=== PATIENT | male | born 1965 | race Caucasian/White ===

== ENCOUNTER 2021-09-25 10:42 | Emergency (ER) | payer OTHER ==
[2021-09-25 10:52] VITALS: BP 111/71; PULSE 68; RESP 18; TEMP 97
--- NOTE | 2021-09-25 11:31 | ED ---
General Adult HPI - General Chief complaint: Extremity Problem,Nontraumatic Stated complaint: hands/feet swelling Time Seen by Provider: 09/25/21 10:56 Source: patient Mode of arrival: ambulatory Limitations: no limitations - History of Present Illness Initial comments: This 56-year-old male presents emergency Department with swelling and pain of bilateral hands and feet 3 weeks. Patient states about 2 months ago he experienced similar symptoms that resolved on their own after 4-5 days. Patient states that 3 weeks ago his symptoms came back and he has been unable to get into his primary care doctor until October 12. Patient states the swelling and pain in his hands and feet are worse in the morning and slowly get better throughout the day. Patient states the pain is in his knuckles and joints in his hands and the knuckles of his feet when he wakes up. Patient states he has been taking Motrin which seems to relieve the pain and swelling. Patient states that the swelling seems to come and go and sometimes is worse in his hands and other times is worse. Patient denies any swelling anywhere else in his body. He denies any chest pain, shortness breath abdominal pain, nausea, vomiting, change in bowel or bladder, change in appetite, lightheadedness and dizziness, change in vision, weakness. - Related Data Home Medications Medication Instructions Recorded Confirmed Ibuprofen [Motrin] 400 mg PO BID 09/25/21 09/25/21 Previous Rx's Medication Instructions Recorded Ketorolac [Toradol] 10 mg PO Q8HR #9 tab 09/25/21 Allergies Allergy/AdvReac Type Severity Reaction Status Date / Time No Known Allergies Allergy Verified 09/25/21 11:35 Review of Systems ROS Statement: Those systems with pertinent positive or pertinent negative responses have been documented in the HPI. ROS Other: All systems not noted in ROS Statement are negative. Past Medical History Past Medical History: No Reported History History of Any Multi-Drug Resistant Organisms: None Reported Past Surgical History: Orthopedic Surgery Additional Past Surgical History / Comment(s): cervial surgery 2016 Past Psychological History: No Psychological Hx Reported Smoking Status: Current every day smoker Past Alcohol Use History: None Reported Past Drug Use History: None Reported General Exam Limitations: no limitations General appearance: alert, in no apparent distress Head exam: Present: atraumatic, normocephalic, normal inspection Eye exam: Present: normal appearance, PERRL, EOMI. Absent: scleral icterus, conjunctival injection, periorbital swelling Pupils: Present: normal accommodation ENT exam: Present: normal exam, mucous membranes moist Neck exam: Present: normal inspection. Absent: tenderness, meningismus, lymphadenopathy Respiratory exam: Present: normal lung sounds bilaterally. Absent: respiratory distress, wheezes, rales, rhonchi, stridor Cardiovascular Exam: Present: regular rate, normal rhythm, normal heart sounds. Absent: systolic murmur, diastolic murmur, rubs, gallop, clicks GI/Abdominal exam: Present: soft, normal bowel sounds. Absent: distended, tenderness, guarding, rebound, rigid Extremities exam: Present: full ROM, normal capillary refill, joint swelling (No swelling appreciated of either right or left hand. No pain to palpation of either hand or feet. No visible swelling of either lower extremity or feet. Sensation fully intact. Radial and ulnar pulses intact along with DP pulses bilateral lower extremities. No erythema, warmth or sign of infect). Absent: tenderness, pedal edema, calf tenderness Back exam: Present: normal inspection, full ROM. Absent: CVA tenderness (R), CVA tenderness (L), paraspinal tenderness, vertebral tenderness Neurological exam: Present: alert, oriented X3, CN II-XII intact Psychiatric exam: Present: normal affect, normal mood Skin exam: Present: warm, dry, intact, normal color. Absent: rash Course Vital Signs 09/25/21 10:47 Temperature 97 F L Pulse Rate 68 Respiratory 18 Rate Blood Pressure 111/71 O2 Sat by Pulse 98 Oximetry Medical Decision Making - Medical Decision Making This 56-year-old male presents emergency Department with the complaint of bilateral hand and feet swelling/joint pain 3 weeks. On my physical exam there is no swelling appreciated of either hand or either foot or extremities. Patient given Toradol IM here. ESR 19. C-reactive protein, BNP, TSH unre markable. Rheumatoid factor pending. All other labs unremarkable. 3 days of Toradol given to patient. Patient was instructed not to take Motrin when taking Toradol. Patient instructed to follow-up with his primary care provider in next 24-48 hours. Rheumatology consult was given to patient and patient was instructed to follow-up with them this week. Strict return precautions were discussed. Patient sent home in stable condition. Patient verbally agreed to plan. Case discussed in detail with my attending, Dr. Aviles. - Lab Data Result diagrams: 09/25/21 11:39 09/25/21 11:39 Lab Results 09/25/21 09/25/21 09/25/21 Range/Units 11:39 11:39 11:39 WBC 8.4 (3.8-10.6) k/uL RBC 4.80 (4.30-5.90) m/uL Hgb 14.1 (13.0-17.5) gm/dL Hct 43.3 (39.0-53.0) % MCV 90.2 (80.0-100.0) fL MCH 29.3 (25.0-35.0) pg MCHC 32.5 (31.0-37.0) g/dL RDW 13.5 (11.5-15.5) % Plt Count 234 (150-450) k/uL MPV 8.2 Neutrophils % 60 % Lymphocytes % 33 % Monocytes % 4 % Eosinophils % 2 % Basophils % 0 % Neutrophils # 5.0 (1.3-7.7) k/uL Lymphocytes # 2.7 (1.0-4.8) k/uL Monocytes # 0.3 (0-1.0) k/uL Eosinophils # 0.1 (0-0.7) k/uL Basophils # 0.0 (0-0.2) k/uL ESR 19 H (0-15) mm/hr Sodium 136 L (137-145) mmol/L Potassium 4.5 (3.5-5.1) mmol/L Chloride 103 (98-107) mmol/L Carbon Dioxide 27 (22-30) mmol/L Anion Gap 6 mmol/L BUN 13 (9-20) mg/dL Creatinine 0.82 (0.66-1.25) mg/dL Est GFR (CKD-EPI)AfAm >90 (>60 ml/min/1.73 sqM) Est GFR (CKD-EPI)NonAf >90 (>60 ml/min/1.73 sqM) Glucose 95 (74-99) mg/dL Calcium 8.8 (8.4-10.2) mg/dL Total Bilirubin 0.5 (0.2-1.3) mg/dL AST 17 (17-59) U/L ALT 9 (4-49) U/L Alkaline Phosphatase 70 (38-126) U/L C-Reactive Protein 0.6 (<1.0) mg/dL NT-Pro-B Natriuret Pep 90 pg/mL Total Protein 7.5 (6.3-8.2) g/dL Albumin 3.8 (3.5-5.0) g/dL TSH 2.540 (0.465-4.680) mIU/L Disposition Clinical Impression: Arthralgia Disposition: HOME SELF-CARE Condition: Stable Instructions (If sedation given, give patient instructions): Arthralgia (ED) Additional Instructions: Please follow-up with rheumatology and your primary care provider in next 24-48 hours. Return to the emergency department with any new, worsening or concerning symptoms. Take Toradol as directed. Do not take Motrin while taking Toradol. Prescriptions: Ketorolac [Toradol] 10 mg PO Q8HR #9 tab Is patient prescribed a controlled substance at d/c from ED?: No Referrals: Nonstaff,Physician [Primary Care Provider] - 1-2 days Gillian Vieira MD [STAFF PHYSICIAN] - 1-2 days Fish Rascon [STAFF PHYSICIAN] - 1-2 days Time of Disposition: 13:01
[2021-09-25 11:52] LABS: Basophils % (A) 0 %; Eosinophils # (A) 0.1 k/uL (0-0.7); Eosinophils % (A) 2 %; HCT 43.3 % (39.0-53.0); HGB 14.1 gm/dL (13.0-17.5); Lymphocytes # (A) 2.7 k/uL (1.0-4.8); Lymphocytes % (A) 33 %; MCH 29.3 pg (25.0-35.0); MCHC 32.5 g/dL (31.0-37.0); MCV 90.2 fL (80.0-100.0); Mean Platelet Volume 8.2; Monocytes # (A) 0.3 k/uL (0-1.0); Monocytes % (A) 4 %; Neutrophils % (A) 60 %; Platelet Count 234 k/uL (150-450); RDW 13.5 % (11.5-15.5); WBC 8.4 k/uL (3.8-10.6)
[2021-09-25 12:11] LABS: ALT 9 U/L (4-49); AST 17 U/L (17-59); African American GFR (CKD) >90 (>60 ml/min/1.73 sqM); Albumin 3.8 g/dL (3.5-5.0); Alkaline Phosphatase 70 U/L (38-126); Anion Gap 6 mmol/L; Blood Urea Nitrogen 13 mg/dL (9-20); C Reactive Protein 0.6 mg/dL (<1.0); Calcium 8.8 mg/dL (8.4-10.2); Carbon Dioxide 27 mmol/L (22-30); Chloride 103 mmol/L (98-107); Glucose 95 mg/dL (74-99); Non-African American GFR(CKD) >90 (>60 ml/min/1.73 sqM); Potassium 4.5 mmol/L (3.5-5.1); Sodium 136 mmol/L (137-145); Total Bilirubin 0.5 mg/dL (0.2-1.3); Total Protein 7.5 g/dL (6.3-8.2)
[2021-09-25 13:09] LABS: Erythrocyte Sedimentation Rate 19 mm/hr (0-15)
[2021-09-25] MEDS ORDERED: KETOROLAC 15 MG/ML 1 ML VIAL IM STA (13:16)
== END 2021-09-25 13:26 | disposition home or self-care (01) ==
LOC: EDBD → EC 10:42
DX: M25.542 Pain in joints of left hand (principal); M25.541 Pain in joints of right hand; M25.572 Pain in left ankle and joints of left foot; M25.571 Pain in right ankle and joints of right foot; F17.200 Nicotine dependence, unspecified, uncomplicated
CPT/HCPCS: 36415; 83880; 80053; 85652; 84443; 85025; 86140; 86431; 86038; 99283; 96372; J1885

== ENCOUNTER 2022-12-02 11:33 | Emergency (ER) | payer OTHER ==
[2022-12-02 11:38] VITALS: RESP 18
[2022-12-02] MEDS ORDERED: KETOROLAC 15 MG/ML 1 ML VIAL IVP STA (12:16)
[2022-12-02] MEDS ORDERED: SODIUM CHLORIDE 0.9% 1,000 ML IV ONE (12:16)
[2022-12-02 13:11] LABS: Basophils % (A) 0 %; Eosinophils # (A) 0.2 k/uL (0-0.7); Eosinophils % (A) 2 %; HCT 42.2 % (39.0-53.0); HGB 13.8 gm/dL (13.0-17.5); Lymphocytes # (A) 2.1 k/uL (1.0-4.8); Lymphocytes % (A) 25 %; MCH 29.6 pg (25.0-35.0); MCHC 32.8 g/dL (31.0-37.0); MCV 90.2 fL (80.0-100.0); Mean Platelet Volume 9.3; Monocytes # (A) 0.6 k/uL (0-1.0); Monocytes % (A) 7 %; Neutrophils # (A) 5.4 k/uL (1.3-7.7); Neutrophils % (A) 63 %; Platelet Count 207 k/uL (150-450); RBC 4.67 m/uL (4.30-5.90); RDW 12.9 % (11.5-15.5); WBC 8.5 k/uL (3.8-10.6)
[2022-12-02 13:20] LABS: ALT 16 U/L (4-49); AST 20 U/L (17-59); African American GFR (CKD) >90 (>60 ml/min/1.73 sqM); Albumin 3.5 g/dL (3.5-5.0); Alkaline Phosphatase 79 U/L (38-126); Anion Gap 4 mmol/L; Blood Urea Nitrogen 15 mg/dL (9-20); Calcium 8.5 mg/dL (8.4-10.2); Carbon Dioxide 27 mmol/L (22-30); Chloride 104 mmol/L (98-107); Glucose 86 mg/dL (74-99); Non-African American GFR(CKD) >90 (>60 ml/min/1.73 sqM); Potassium 4.4 mmol/L (3.5-5.1); Sodium 135 mmol/L (137-145); Total Bilirubin 0.4 mg/dL (0.2-1.3); Total Protein 6.7 g/dL (6.3-8.2)
[2022-12-02] MEDS ORDERED: MORPHINE SULFATE 2 MG/ML SYRINGE IVP ONE (14:18)
--- NOTE | 2022-12-02 16:00 | CT ---
EXAMINATION TYPE: CT facial bones w con DATE OF EXAM: 12/02/2022 COMPARISON: None. HISTORY: left sided tooth pain, abscess? CT DLP: 554.7 mGycm Automated exposure control for dose reduction was used. CONTRAST: CT scan of the facial bones is performed with IV Contrast, patient injected with 100 mL of Isovue 300 . FINDINGS: Focal moderate ill-defined fluid and fat stranding over the mandible greatest left of midli ne. There is lucency consistent with cavity posterior left first molar to sagittal image 60. There is destruction of the majority of the second left premolar tooth and lucency consistent with cavity in the first left premolar tooth at several levels including coronal image 22. There is absent right sec ond premolar tooth with lucency axial image 67. There are absent additional molar teeth bilaterally. There is heterogeneous thin-walled rim-enhancing fluid collection surrounding the left mandible measu ring 1.7 x 0.8 cm axial image 18. Craniocaudal dimension roughly 2.0 cm sagittal image 60. Lack of molar teeth in the maxilla also seen bilaterally. The visualized paranasal sinuses are clear. The globes are intact bilaterally. Intraconal fat is preserved. [id number] peripheral calcifie d plaque left proximal internal carotid artery without significant stenosis. Visualized airway is pat ent. Visualized brain parenchyma is unremarkable. No bony destruction is evident. IMPRESSION: Focal inflammatory exchange underwriting consultant the mandible greatest left of midline with small 2.0 cm ad jacent rim-enhancing fluid collection or abscess noted. Finding likely on basis of underlying dental cavities
[2022-12-02] MEDS ORDERED: ACET/COD 300 MG/30 MG STARTER PACK 6 TAB BTL PO STA (16:07)
--- NOTE | 2022-12-02 16:07 | ED ---
ENT HPI - General Chief complaint: Dental/Oral Stated complaint: Face Infection Time Seen by Provider: 12/02/22 11:40 Source: patient, RN notes reviewed Mode of arrival: ambulatory Limitations: no limitations - History of Present Illness Initial comments: 57-year-old male with no significant past medical history presents to the emergency department with a chief complaint of dental pain. Patient reports worsening dental pain that started this morning. He denies any trauma or injury. He reports that he is unable to see a dentist for 2 and half weeks. He is complaining of worsening pain and swelling to his left lower jaw. he saw a dentist approximately 2 months ago. He does report tobacco product use. - Related Data Home Medications Medication Instructions Recorded Confirmed Etanercept [Enbrel Sureclick] 50 mg SQ LONG 12/02/22 12/02/22 clindamycin HCL [Cleocin] 300 mg PO Q6HR 12/02/22 12/02/22 traMADol HCL 50 mg PO Q6H 12/02/22 12/02/22 Previous Rx's Medication Instructions Recorded Amoxic-Pot Clav 875-125Mg 1 tab PO Q12HR #20 tab 12/02/22 [Augmentin 875-125] Allergies Allergy/AdvReac Type Severity Reaction Status Date / Time No Known Allergies Allergy Verified 12/02/22 12:21 Review of Systems ROS Statement: Those systems with pertinent positive or pertinent negative responses have been documented in the HPI. ROS Other: All systems not noted in ROS Statement are negative. Past Medical History Past Medical History: Rheumatoid Arthritis (RA) History of Any Multi-Drug Resistant Organisms: None Reported Past Surgical History: Orthopedic Surgery Additional Past Surgical History / Comment(s): cervial surgery 2016 Past Psychological History: No Psychological Hx Reported Smoking Status: Current every day smoker Past Alcohol Use History: None Reported Past Drug Use History: None Reported General Exam - General Exam Comments Initial Comments: General: Alert, in no acute distress Head: atraumatic normocephalic. Eyes PERRL, EOMI intact, mucous membranes moist Oral: Patient has poor dentition with multiple dental caries and missing teeth. There is swelling to the lower jaw without evidence of dental abscess. No active drainage. Range of motion. It is tender to palpation. No crepitus. Airway remained patent. Patient is not drooling. Respiratory: Lungs clear to auscultation bilaterally Cardiovascular: Rate regular rate and rhythm Abdominal: Soft without guarding or rebound Extremities: Normal inspection with full range of motion and normal capillary refill Neuroogic: alert and oriented 3, CN II-XII intact, able to ambulate with steady gait Skin: warm dry and intact with normal color Limitations: no limitations Course Vital Signs 12/02/22 12/02/22 11:35 16:29 Temperature 98.8 F 97.6 F Pulse Rate 81 77 Respiratory 18 18 Rate Blood Pressure 120/74 147/75 O2 Sat by Pulse 100 97 Oximetry Medical Decision Making - Medical Decision Making Was pt. sent in by a medical professional or institution (, [facility], [facility], urgent care, hospital, or [place] health care facility...) When possible be specific @ -[No] Did you speak to anyone other than the patient for history (EMS, parent, family, police, friend...)? What history was obtained from this source @ -[No] Did you review nursing and triage notes (agree or disagree)? Why? @ -[I reviewed and agree with nursing and triage notes] Were old charts reviewed (outside hosp., previous admission, EMS record, old EKG, old radiological studies, urgent care reports/EKG's, [place] health care facility records)? Report findings @ -[No old charts were reviewed] Differential Diagnosis (chest pain, altered mental status, abdominal pain women, abdominal pain men, vaginal bleeding, weakness, fever, dyspnea, syncope, headache, dizziness, GI bleed, back pain, seizure, CVA, palpatations, mental health, musculoskeletal)? @ -[not applicable] EKG interpreted by me (3pts min.). @ -[As above] X-rays interpreted by me (1pt min.). @ -[None done] CT interpreted by me (1pt min.). @ -See below U/S interpreted by me (1pt. min.). @ -[None done] What testing was considered but not performed or refused? (CT, X-rays, U/S, labs)? Why? @ -[None] What meds were considered but not given or refused? Why? @ -[None] Did you discuss the management of the patient with other professionals (professionals i.e. , [facility], [facility], lab, RT, psych nurse, psychotherapist social worker, business and financial counsel, teacher, licensed loan officer, rehabilitation case coordinator)? Give summary @ -[No] Was smoking cessation discussed for >3mins.? @ -[No] Was critical care preformed (if so, how long)? @ -[No] Were there social determinants of health that impacted care today? How? (Homelessness, low income, unemployed, alcoholism, drug addiction, transportation, low edu. Level, literacy, decrease access to med. care, assisted, rehab)? @ -[No] Was there de-escalation of care discussed even if they declined (Discuss DNR or withdrawal of care, Hospice)? DNR status @ -[No] What co-morbidities impacted this encounter? (DM, HTN, Smoking, COPD, CAD, Cancer, CVA, ARF, Chemo, Hep., AIDS, mental health diagnosis, sleep apnea, mo rbid obesity)? @ -[None] Was patient admitted / discharged? Hospital course, mention meds given and route, prescriptions, significant lab abnormalities, going to OR and other pertinent info. @ -Discharge. This is a 57-year-old male who presents to the emergency department with dental pain. Patient had a thorough history and phys ical exam performed on the ED. Physical exam reveals some swelling to the left lower aspect of the patient. Patient has poor dentition. There is no evidence of drainable dental abscess. Patient had lab work and imaging performed which revealed: CT facial bones reveals focal inflammatory pipe changer the mandible previous left of the midline was smoking 2.0 cm adjacent ring enhancing fluid collection or abscess Should had lab work performed which was essentially unremarkable. I discussed the results in detail with the patient verbalized understanding and all questions were addressed. I discussed at length. He was given a prescription for Augmentin however he was recently on Augmentin 2 days ago and reports he was switched from Augmentin to clindamycin. He was given Toradol and morphine with mild symptomatic relief. Patient was advised to continue his clindamycin as prescribed. Patient discharged in stable condition. Case discussed with ALENA Mendez who agrees with plan of care. Undiagnosed new problem with uncertain prognosis? @ -[No] Drug Therapy requiring intensive monitoring for toxicity (Heparin, Nitro, Insulin, Cardizem)? @ -[No] Were any procedures done? @ -[No] Diagnosis/symptom? @ -Dental pain - Poor dentition Acute, or Chronic, or Acute on Chronic? @ -Acute Uncomplicated (without systemic symptoms) or Complicated (systemic symptoms)? @ -Uncomplicated Side effects of treatment? @ -[No] Exacerbation, Progression, or Severe Exacerbation? @ -[No] Poses a threat to life or bodily function? How? (Chest pain, USA, SC, pneumonia, PE, COPD, DKA, ARF, appy, cholecystitis, CVA, Diverticulitis, Homicidal, Suicidal, threat to staff... and all critical care pts) @ -Low likelihood - Lab Data Result diagrams: 12/02/22 12:37 12/02/22 12:37 Lab Results 12/02/22 12/02/22 Range/Units 12:37 12:37 WBC 8.5 (3.8-10.6) k/uL RBC 4.67 (4.30-5.90) m/uL Hgb 13.8 (13.0-17.5) gm/dL Hct 42.2 (39.0-53.0) % MCV 90.2 (80.0-100.0) fL MCH 29.6 (25.0-35.0) pg MCHC 32.8 (31.0-37.0) g/dL RDW 12.9 (11.5-15.5) % Plt Count 207 (150-450) k/uL MPV 9.3 Neutrophils % 63 % Lymphocytes % 25 % Monocytes % 7 % Eosinophils % 2 % Basophils % 0 % Neutrophils # 5.4 (1.3-7.7) k/uL Lymphocytes # 2.1 (1.0-4.8) k/uL Monocytes # 0.6 (0-1.0) k/uL Eosinophils # 0.2 (0-0.7) k/uL Basophils # 0.0 (0-0.2) k/uL Sodium 135 L (137-145) mmol/L Potassium 4.4 (3.5-5.1) mmol/L Chloride 104 (98-107) mmol/L Carbon Dioxide 27 (22-30) mmol/L Anion Gap 4 mmol/L BUN 15 (9-20) mg/dL Creatinine 0.78 (0.66-1.25) mg/dL Est GFR (CKD-EPI)AfAm >90 (>60 ml/min/1.73 sqM) Est GFR (CKD-EPI)NonAf >90 (>60 ml/min/1.73 sqM) Glucose 86 (74-99) mg/dL Calcium 8.5 (8.4-10.2) mg/dL Total Bilirubin 0.4 (0.2-1.3) mg/dL AST 20 (17-59) U/L ALT 16 (4-49) U/L Alkaline Phosphatase 79 (38-126) U/L Total Protein 6.7 (6.3-8.2) g/dL Albumin 3.5 (3.5-5.0) g/dL Disposition Clinical Impression: Dental caries, Dental abscess Disposition: HOME SELF-CARE Condition: Stable Instructions (If sedation given, give patient instructions): Dental Abscess (ED), Toothache (ED) Additional Instructions: Please return to the nearest emergency department if symptoms worsen or persist Prescriptions: Amoxic-Pot Clav 875-125Mg [Augmentin 875-125] 1 tab PO Q12HR #20 tab Is patient prescribed a controlled substance at d/c from ED?: No When asked, does pt state using other controlled substances?: No Referrals: Sanna Lynch MD [Primary Care Provider] - 1-2 days Time of Disposition: 16:07
[2022-12-02 16:30] VITALS: BP 147/75; PULSE 77; TEMP 97.6
== END 2022-12-02 16:30 | disposition home or self-care (01) ==
LOC: EC 11:33
DX: K02.9 Dental caries, unspecified (principal); K04.7 Periapical abscess without sinus; M06.9 Rheumatoid arthritis, unspecified; F17.200 Nicotine dependence, unspecified, uncomplicated
CPT/HCPCS: 36415; 80053; 85025; 70487; 99284; 96374; 96375; J2270; J1885; Q9967

== ENCOUNTER → 2024-06-08 | Outpatient (CLI) | payer OTHER ==
--- NOTE | 2024-06-10 12:55 | MR ---
EXAMINATION TYPE: MR cervical spine wo/w con DATE OF EXAM: 06/08/2024 4:30 PM COMPARISON: None. CLINICAL INDICATION: Male, 59 years old with history of M54.2 NECK PAIN M79.601 PAIN IN R ARM, neck p ain, right arm pain/weakness for 5 months TECHNIQUE: Multiplanar multiecho imaging on a 3.0 Hilda magnet is performed through the cervical spin e. IV Contrast: 6.5 mL Gadobutrol (None, if empty) FINDINGS: The craniovertebral junction is normal. Vertebral body alignment is normal. Anterior cer vical fusion is present C5-C7 C7-T1: No focal disc herniation or significant disc bulge is evident. No spinal canal stenosis or n eural foraminal stenosis is present. C6-7: No focal disc herniation or significant disc bulge is evident. No spinal canal stenosis or janiya ral foraminal stenosis is present. C5-6: No focal disc herniation or significant disc bulge is evident. No spinal canal stenosis or janiya ral foraminal stenosis is present. C4-5: Right paracentral disc bulging and subligamentous disc herniation is present. This has moderate anterior thecal sac compression. Some foraminal stenosis may be present. Correlate with the radicula r symptoms.. C3-4: Broad-based disc bulge is present. As may be greater into the left paracentral and left lateral direction. This comes in close approximation with the spinal cord. Some mild cord flattening may be present, correlate for Left radicular symptoms. Large posterior endplate spurs noted at C3 in the lef t paracentral region. C2-3: No focal disc herniation or significant disc bulge is evident. No spinal canal stenosis or janiya ral foraminal stenosis is present. IMPRESSION: 1. Subligamentous disc herniations centrally and right paracentrally at C4-5 and left paracentrally a nd laterally at C3-4. Correlation for radicular symptoms 2. Left paracentral and left lateral spur C3. Some cord flattening may be present. [facility], , 06/10/2024 12:53 PM
== END | disposition home or self-care (01) ==
LOC: RADMRIMAIN 15:46
PROVIDERS: ATTEND Family Medicine
DX: M54.2 Cervicalgia (principal); M79.601 Pain in right arm
CPT/HCPCS: 72156; A9585

== ENCOUNTER → 2024-09-15 | Outpatient (CLI) | payer OTHER ==
--- NOTE | 2024-09-16 | MR ---
EXAMINATION TYPE: MR humerus RT wo con DATE OF EXAM: 09/15/2024 5:46 PM COMPARISON: None. CLINICAL INDICATION: Male, 59 years old with history of M66.829 SPONTANEOUS RUPTURE OF OTHER TENDONS, UNSP, RT upper arm pain especially scapular area, Limited movement, Biceps muscle is sunken inward TECHNIQUE: Multiplanar multi-sequence imaging was performed. No gadolinium given. IV Contrast: cc (None if empty) FINDINGS: Susceptibility artifact limits evaluation of the biceps tendon does appear to insert into the radial tuberosity. There is increased signal within the tendon near its insertion with surrounding edema. Po ssible partial thickness tear is not excluded. Large field of view limits evaluation at the elbow due to susceptibility artifact on some sequences. The origin of the biceps head also appears within norm al limits for long head of biceps tendon is appropriately positioned straightened on the supraglenoid tubercle/labrum there is increased. Soft tissues: The musculature does appear to be within normal limits. The signal intensity is unrema rkable. Rotator cuff appears grossly intact. Osseous structures: The bone marrow signal intensity of the humerus is within normal limits. Osteoar thritic changes are noted. The acromion is a type II. IMPRESSION: 1. Tendinosis of the insertion of the biceps tendon on the radial tuberosity with some surrounding e [place] possibly partial-thickness tear. Evaluation slightly limited due to field of view. Consider dedi cated elbow MRI. 2. The biceps tendon long head and short heads appropriately originate to the respective origins. Th e distal biceps tendon inserts increased signal near its origin to the radial tuberosity. 3. No evidence for mass or lymphadenopathy. [facility], , 09/15/2024 11:58 PM
== END | disposition home or self-care (01) ==
LOC: RADMRIMAIN 16:42
PROVIDERS: ATTEND Internal Medicine
DX: M66.821 Spontaneous rupture of other tendons, right upper arm (principal); M67.813 Other specified disorders of tendon, right shoulder; R60.0 Localized edema

== ENCOUNTER → 2024-09-27 | Outpatient (CLI) | payer OTHER ==
[2024-09-27 09:56] VITALS: BP 109/54; PULSE 83; RESP 16; TEMP 97.7
--- NOTE | 2024-09-27 15:17 | P.PAINPG ---
PQRS Measure Charge Sheet Comment: HISTORY OF PRESENT ILLNESS: A 59 yr old male as a referral from Dr Lynch presents today w severe and chronic neck pain > 3 mo secondary to C3-C5 radiculopathy, ACDF C5-C7 for evaluation. Pt states pain level is provoked at 8 /10 in intensity, constant, localized in the cervical spine, predominantly axial, sharp in character w occasional shooting pain towards the RUE. Pain is provoked by overhead reaching. Pain is alleviated by physician guided home exercises/ stretches [ ] times weekly since [ ], heat, ice, manual massage, medications, repositioning and rest . Cervical disability score at 26. PMH: OA, RA PSH: Cervical Surgery (2016) SH: Daily tobacco use, No ETOH abuse, No illicit drug use FH: Non contributory All: See list Meds: See list incl Mobic, Prednisone REVIEW OF ORGAN SYSTEMS: CONSTITUTIONAL: No fevers or chills. No recent weight loss. NEUROLOGICAL: + numbness and tingling along the distal extremities. No seizure disorders or headaches. MUSCULOSKELETAL: + pain PSYCHIATRIC: Denies current depression or suicidal thoughts. Physical Examinations : Constitutional : Cooperative , not in acute distress . Neurologic : Cranial nerve II to XII intact. No focal neurological deficits. Psychiatric : alert & oriented x 3. Matching mood & appropriate affect. Judgment & insight intact. Musculoskeletal : Cervical Spine Motor strength in the deltoid and biceps: Normal right side. Normal Left side Motor strength biceps and the wrist extensors: Normal right side . Normal left side Motor strength in the triceps muscle: Normal right side. Normal left side Deep tendon reflexes: Normal at the biceps. Normal at Brachioradialis. Normal at triceps Vertebral body tenderness to deep palpation over Cervical facet loading test: positive bilaterally Spurling test: positive bilaterally Neck distraction test: positive bilaterally Jaelyn sign: positive bilaterally Taut bands w twitch response over R C7- T4 Lumbar spine Motor strength lower extremities ,thigh and legs 5/5 Right side , 5/5 Left side Deep tendon reflexes : Normal Knee Jerk. Normal Ankle Jerk Vertebral body tenderness over Soto Test positive Lumbar facet Loading Test: positive Right / positive Left Range of motion of the lumbar spine Flexion 30 degrees, extension 10 degrees Straight Leg Raise test: Left/ Right positive at degrees Cornelius test: positive right / positive left. Severe tenderness over the Sacroiliac joint on the Right / Left sides Gaenslen test: positive bilaterally Seated flexion test: positive bilaterally. Sacral spine : Severe tenderness over the Sacroiliac joint: right side / left side Range of motion: Flexion of the lumbar spine <60 degrees Range of motion: Extension of the lumbar spine <20 degrees Gaenslen's Test positive Cornelius test: positive right side / left side Thigh Thrust Test Sacral Thrust Test Imaging: MRI contrast/ non contrast cervical spine from 06/08/24 reviewed Assessment/ Plan : C3-C5 radiculopathy, ACDF C5-C7 Recommendation of R TPIs C7-T4 #1. Risks, benefits of procedure discussed and patient verbalized understanding. Admits to anti- coagulant use or medical history of diabetes. Protocol for discontinuation/ continuation of medications destiny procedure discussed. All questions answered. I have spent greater than 30 minutes on patient care today. Dr Phipps was available by phone for the evaluation of this patient. The time was used to review the medical records including relevant urine studies and Prescription history (MAPs), review of the available imaging, evaluation and examination of the patient, coordination of care with the medical staff and if applicable referring physicians, as well as creation of the medical record - Pain Location Bilateral Lower Neck Non-Pharmacological Interventions: Heat, Ice, Inactivity, Position/Reposition Pharmacological Interventions: PRN Medication, Topical Medication Home Medications: Ambulatory Orders Amoxic-Pot Clav 875-125Mg [Augmentin 875-125] 1 tab PO Q12HR #20 tab 12/02/22 Etanercept [Enbrel Sureclick] 50 mg SQ LONG 12/02/22 clindamycin HCL [Cleocin] 300 mg PO Q6HR 12/02/22 traMADol HCL 50 mg PO Q6H 12/02/22 HYDROcodone/APAP 5-325MG [[place] 5-325] 1 tab PO Q4HR PRN 3 Days #18 tab 09/27/24 Controlled Substance Measures - Controlled Substance Measures Is patient prescribed a controlled substance at discharge?: Yes When asked, does pt state using other controlled substances?: No If prescribed controlled substance>3 days was MAPS reviewed?: Prescribed <3 Days
== END ==
LOC: PNWHC3 08:34
PROVIDERS: ATTEND Specialist
DX: M54.12 Radiculopathy, cervical region (principal); Z72.0 Tobacco use
CPT/HCPCS: 99211

== ENCOUNTER → 2024-10-01 | Outpatient (CLI) | payer OTHER ==
--- NOTE | 2024-10-01 12:09 | CT ---
EXAMINATION TYPE: High-resolution CT chest DATE OF EXAM: 10/01/2024 9:52 AM COMPARISON: None CLINICAL INDICATION: Male, 59 years old with history of M06.9 RHEUMATOID ARTHRITIS, UNSPECIFIED; PHH, Interstitial lung disease, possible rheumatoid factor TECHNIQUE: High-resolution CT scanning of the chest without IV contrast. 1 mm slight thickness with 1 cm gap or HRCT protocol. Both prone and supine imaging is utilized. CT DLP: 556.10 mGycm, Automated exposure control for dose reduction was used. FINDINGS: Heart normal size without pericardial effusion. LAD and RCA coronary calcifications are present. Aorta normal caliber with conventional arch vessel branching anatomy and mild atherosclerotic arch ca lcifications. Allowing for HRCT technique, no obvious thoracic adenopathy. There is moderate to advanced centrilobular emphysema. Additional paraseptal emphysema. There also ap pears to be prominent subpleural microcystic change, possible early honeycombing along the periphery of the lungs with a lower lung predominance and scattered reticular changes. Some mild groundglass in the region of reticulation. No brandon air trapping. No consolidation or pleural effusion. Biapical pleural-parenchymal scarring. Suspect some additional scattered pleural parenchymal scarring such as at the posterior right midlung. HRCT technique limits assessment for small nodules. Visualized upper abdomen shows no gross abnormality. Some endplate spondylosis mid to lower thoracic spine. IMPRESSION: COPD with moderate to advanced emphysema with superimposed interstitial lung disease, either fibrotic NSIP or early UIP pattern. [facility], , 10/01/2024 12:06 PM
== END | disposition home or self-care (01) ==
LOC: RADCTMAIN 08:46
PROVIDERS: ATTEND Internal Medicine
DX: J84.9 Interstitial pulmonary disease, unspecified (principal); J43.9 Emphysema, unspecified; J84.89 Other specified interstitial pulmonary diseases; M06.9 Rheumatoid arthritis, unspecified
CPT/HCPCS: 71250

== ENCOUNTER 2024-10-14 06:11 | Day surgery (SDC) | payer OTHER ==
[2024-10-14 06:41] VITALS: RESP 18; TEMP 97.7
[2024-10-14 06:46] LABS: Glucose,Whole Blood 83 mg/dL (70-110)
[2024-10-14] MEDS ORDERED: methylPREDNISolone ACETATE 40 MG/ML 1 ML VIAL ONE (07:12)
[2024-10-14] MEDS ORDERED: ROPIVACAINE 5MG/ML 20ML VIAL ONE (07:12)
--- NOTE | 2024-10-14 07:29 | P.PCN ---
Description of Procedure: Preprocedure diagnosis. Myofascial pain. Myofascial trigger point. Postprocedure diagnosis. As above. Procedure done. Myofascial trigger point injection with local anesthetics and steroid at 4 points. Anesthesia. Local anesthetic infiltration. In the OR continuous pulse ox, EKG, blood pressure, and verbal communication was maintained with the patient. Blood loss. None. Indication. Discussed with the patient procedure, alternatives and possible complications which may include infection, bleeding, nerve damage, aggravation of pain. Patient understands and all questions were answered. Procedure note. After getting consent patient in the procedure area. Most tender points were identified and marked. A 25-gauge needle attached to syringe was introduced at the trigger points and after negative aspiration 5 mL solution are injected at each trigger point. I injected 3 trigger points in right rhomboid medial to the inner border of scapula and 1 right Trapezius. Total solution consists of 20 ml 0.5%Ropivacaine mixed with 40 mg Depomedrol. Disposition. Patient tolerated the procedure well. No complication. Discharged home in stable condition.
[2024-10-14 07:36] VITALS: BP 123/85; PULSE 83
== END 2024-10-14 07:50 | disposition home or self-care (01) ==
LOC: ORPAIN 06:11
PROVIDERS: ATTEND Pain Medicine Interventional Pain Medicine
DX: M79.18 Myalgia, other site (principal)
CPT/HCPCS: 20553; J2795; J1010

== ENCOUNTER → 2024-11-03 | Outpatient (CLI) | payer OTHER ==
[2024-11-03 08:02] VITALS: BP 118/77; PULSE 84; RESP 18; TEMP 97.8
--- NOTE | 2024-11-03 15:53 | P.PAINPG ---
PQRS Measure Charge Sheet Comment: HISTORY OF PRESENT ILLNESS: A 59 yr old male presents today w severe and chronic neck pain > 3 mo secondary to C3-C5 radiculopathy, ACDF C5-C7 for evaluation s/p BL TPI C7-T4 #1. Pt states he experienced 75 % pain relief x 3 wks s/p procedure. Pt states pain level is provoked at 6 /10 in intensity, constant, localized in the cervical spine, predominantly axial, sharp in character w occasional shooting pain towards the RUE. Pain is provoked by overhead reaching. Pain is alleviated by physician guided home stretches daily since Aug 2024, heat, ice, manual massage, medications, repositioning and rest . Awaiting records from Dr Magallanes as to why narcotics have been discontinued, which pt does not acknowledge but stated he will obtain records in-person. Interventional procedures include R TPIs C7-T4 x1 (10/22) Medications Mobic, Prednisone, [place] 5/325mg #18. Need medical records from Dr Magallanes, previous prescribing doctor. REVIEW OF ORGAN SYSTEMS: CONSTITUTIONAL: No fevers or chills. No recent weight loss. NEUROLOGICAL: + numbness and tingling along the distal extremities. No seizure disorders or headaches. MUSCULOSKELETAL: + pain PSYCHIATRIC: Denies current depression or suicidal thoughts. Physical Examinations : Constitutional : Cooperative , not in acute distress . Neurologic : Cranial nerve II to XII intact. No focal neurological deficits. Psychiatric : alert & oriented x 3. Matching mood & appropriate affect. Judgment & insight intact. Musculoskeletal : Cervical Spine Motor strength in the deltoid and biceps: Normal right side. Normal Left side Motor strength biceps and the wrist extensors: Normal right side . Normal left side Motor strength in the triceps muscle: Normal right side. Normal left side Deep tendon reflexes: Normal at the biceps. Normal at Brachioradialis. Normal at triceps Vertebral body tenderness to deep palpation over Cervical facet loading test: positive bilaterally Spurling test: positive bilaterally Neck distraction test: positive bilaterally Jaelyn sign: positive bilaterally Taut bands w twitch response over R C7- T4 Lumbar spine Motor strength lower extremities ,thigh and legs 5/5 Right side , 5/5 Left side Deep tendon reflexes : Normal Knee Jerk. Normal Ankle Jerk Vertebral body tenderness over Soto Test positive Lumbar facet Loading Test: positive Right / positive Left Range of motion of the lumbar spine Flexion 30 degrees, extension 10 degrees Straight Leg Raise test: Left/ Right positive at degrees Cornelius test: positive right / positive left. Severe tenderness over the Sacroiliac joint on the Right / Left sides Gaenslen test: positive bilaterally Seated flexion test: positive bilaterally. Sacral spine : Severe tenderness over the Sacroiliac joint: right side / left side Range of motion: Flexion of the lumbar spine <60 degrees Range of motion: Extension of the lum bar spine <20 degrees Gaenslen's Test positive Cornelius test: positive right side / left side Thigh Thrust Test Sacral Thrust Test Imaging: MRI contrast/ non contrast cervical spine from 06/08/24 reviewed Assessment/ Plan : C3-C5 radiculopathy, ACDF C5-C7 Will mange residual pain and may RTC on an as needed basis. All questions answered. I have spent greater than 30 minutes on patient care today. Dr Phipps was available by phone for the evaluation of this patient. The time was used to review the medical records including relevant urine studies and Prescription history (MAPs), review of the available imaging, evaluation and examination of the patient, coordination of care with the medical staff and if applicable referring physicians, as well as creation of the medical record - Pain Location Neck Non-Pharmacological Interventions: Heat, Ice Pharmacological Interventions: Topical Medication PQRS Narrative: Hx Alcohol Use (MH) No Home Medications: Ambulatory Orders Ibuprofen [Motrin] 800 mg PO Q8H 10/14/24 predniSONE 10 mg PO DAILY 10/14/24 Controlled Substance Measures - Controlled Substance Measures Is patient prescribed a controlled substance at discharge?: No
== END ==
LOC: PNWHC3 07:40
PROVIDERS: ATTEND Specialist
DX: M54.12 Radiculopathy, cervical region (principal); M43.22 Fusion of spine, cervical region; G89.29 Other chronic pain
CPT/HCPCS: 99212

== ENCOUNTER → 2025-01-14 | Outpatient (CLI) | payer OTHER | END | disposition home or self-care (01) | LOC: LABWHC1 15:04 | PROVIDERS: ATTEND Orthopaedic Surgery Orthopaedic Surgery of the Spine | DX: Z01.812 Encounter for preprocedural laboratory examination (principal) | CPT/HCPCS: 86850; 86900; 86901 ==

== ENCOUNTER → 2025-01-14 | Outpatient (CLI) | payer OTHER ==
--- NOTE | 2025-01-14 16:11 | XR ---
EXAMINATION TYPE: XR chest 2V DATE OF EXAM: 01/14/2025 4:02 PM COMPARISON: CT chest 10/01/2024 TECHNIQUE: XR chest 2V Frontal and lateral views of the chest. CLINICAL INDICATION:Male, 59 years old with history of J44.9 COPD; FINDINGS: Lungs/Pleura: There is flattening of the diaphragm with increased lucency of the lungs. No evidence o f pneumothorax, pleural effusion or focal consolidation. Chronic interstitial prominence. Pulmonary vascularity: Unremarkable. Heart/mediastinum: Cardiomediastinal silhouette is unremarkable. Musculoskeletal: No acute osseous pathology. Partial visualization of cervical fusion hardware. IMPRESSION: 1. No acute cardiopulmonary disease/process. 2. COPD with interstitial lung disease. [facility], , 01/14/2025 4:09 PM
== END | disposition home or self-care (01) ==
LOC: RADXRMAIN 15:46
PROVIDERS: ATTEND Internal Medicine Geriatric Medicine
DX: J44.9 Chronic obstructive pulmonary disease, unspecified (principal); J84.9 Interstitial pulmonary disease, unspecified
CPT/HCPCS: 71046

== ENCOUNTER 2025-01-17 05:31 | Day surgery (SDC) | payer OTHER ==
[2025-01-14 09:30] VITALS: BMI 20.3
[2025-01-17] MEDS ORDERED: DEXAMETHASONE SOD PHOSPHATE 4 MG/ML 1 ML VIAL IV ONE (06:05)
[2025-01-17 06:32] LABS: Glucose,Whole Blood 89 mg/dL (70-110)
[2025-01-17] MEDS: ONDANSETRON 4 MG/2 ML VIAL IVP ONE (06:33)
[2025-01-17] MEDS: LACTATED RINGERS 1,000 ML IV SCH (06:33)
[2025-01-17] MEDS: IV FLUID CONTINUATION 1,000 ML IV ONE (06:36)
[2025-01-17] MEDS: HYDROCORTISONE SUCCINATE 100 MG/2 ML VIAL IV STA (06:48)
[2025-01-17] MEDS: MIDAZOLAM 2 MG/2 ML VIAL IV ONE (06:50)
[2025-01-17] MEDS ORDERED: GLYCOPYRROLATE 0.2 MG/ML 2 ML VIAL ONE (07:25)
[2025-01-17] MEDS ORDERED: PHENYLEPHRINE-0.9% NACL SYG 1,000 MCG/10 ML SYRINGE ONE (07:25)
[2025-01-17] MEDS ORDERED: DEXAMETHASONE SOD PHOSPHATE 10 MG/ML 1 ML VIAL ONE (07:25)
[2025-01-17] MEDS ORDERED: PROPOFOL 10 MG/ML 20 ML VIAL IV ONE (07:25)
[2025-01-17] MEDS ORDERED: NEOSTIGMINE 1 MG/ML 10 ML VIAL ONE (07:25)
[2025-01-17] MEDS ORDERED: ROCURONIUM 10 MG/ML (5 ML VIAL) IV ONE (07:25)
[2025-01-17] MEDS ORDERED: fentaNYL (PF) 50 MCG/ML 2 ML AMP ONE (07:25)
[2025-01-17] MEDS ORDERED: SUCCINYLCHOLINE CHLORIDE 200 MG/10 ML VIAL IV ONE (07:25)
[2025-01-17] MEDS ORDERED: MIDAZOLAM 2 MG/2 ML VIAL ONE (07:25)
[2025-01-17] MEDS ORDERED: LIDOCAINE 1% INJ 10MG/ML (20 ML MDV) ONE (07:25)
[2025-01-17] MEDS: ceFAZolin 1,000 MG in SODIUM CHLORIDE 0.9% 1,000 ML IRRIGATION ONE (08:26)
[2025-01-17] MEDS: BUPIVACAINE (PF) 0.5% 30 ML VIAL SQ ONE ×2 (08:28)
[2025-01-17] MEDS: LIDOCAINE 2%-EPI 1:100,000 20 ML VIAL SQ ONE ×2 (08:28)
[2025-01-17] MEDS: THROMBIN (BOVINE) 5,000 UNIT VIAL TOPICAL ONE (08:29)
[2025-01-17] MEDS: LACTATED RINGERS 1,000 ML IV ONE ×2 (09:26→11:19)
[2025-01-17 10:00] VITALS: TEMP 97.1
--- NOTE | 2025-01-17 10:01 | FL ---
EXAMINATION TYPE: FL guidance operating room, XR cervical spine limited DATE OF EXAM: 01/17/2025 FLUOROSCOPY Cervical Fusion 2 levels, 9 sec fluoro time, DAP .[id number] 4 images are submitted. [facility], , 01/17/2025 9:59 AM
--- NOTE | 2025-01-17 10:07 | P.OP ---
Date of Procedure: 01/17/25 Preoperative Diagnosis: Cervical stenosis C3-4 C4-5, herniated nucleus pulposus C3-4 C4-5, history of prior anterior cervical fusion C5-6-7, upper extremity colopathy, upper extremity weakness, neck pain, degenerative disc disease Postoperative Diagnosis: Same Anesthesia: GETA Pathology: none sent Condition: stable Disposition: PACU Description of Procedure: BRIEF OPERATIVE NOTE Preoperative Diagnosis:Cervical stenosis C3-4 C4-5, herniated nucleus pulposus C3-4 C4-5, history of prior anterior cervical fusion C5-6-7, upper extremity colopathy, upper extremity weakness, neck pain, degenerative disc disease Postoperative Diagnosis:Cervical stenosis C3-4 C4-5, herniated nucleus pulposus C3-4 C4-5, history of prior anterior cervical fusion C5-6-7, upper extremity colopathy, upper extremity weakness, neck pain, degenerative disc disease Procedure: Anterior cervical decompression with discectomy and fusion C3-4 C4-5 Harvesting of local autogenous bone graft from C3-4 and 5 for placement within the implant placement of interbody graft C3-4 C4-5 Surgeon: Dr. Durham Patient Ambassador: Davey HUGGINS who is present throughout the entire the case persistence during positioning, dissection, exposure, visualization, and all crucial elements of the case as well as closure. Anesthesia: General anesthesia Estimated blood loss: Approximately 75 cc Complications: None apparent Components implanted: Stable C anterior cervical stand-alone implants x 2 1 measuring 6 mm and 1 measuring 7 mm filled with local autogenous bone graft Disposition: To recovery room in good stable condition. OPERATIVE INDICATIONS The patient has had long-standing issues in their neck and upper extremities. Almost 10 years ago patient had been experiencing issues at his neck and cervical spine and underwent anterior cervical decompression with discectomy and fusion about 9 years ago. He had done fairly well with this and had gone on to solid fusion. Over the past couple of years he has been having worsening symptoms with significant increased in the past several months. He has been having worsening pain in his neck and particular at his right upper extremity with evidence of radiculopathy and some weakness. His imaging studies showed positive cervical fusion at C5-6 and 7 with significant adjacent level degeneration and stenosis with herniation at C3-4 and C4-5 which correlated well with his neck and upper extremity symptoms. The patient has been through conservative treatment. He was not having any prolonged benefit despite aggressive conservative care. We discussed various treatment options including surgery, and the patient wishes to proceed with surgery We discussed the risk, patient's alternatives and benefits of surgery including but not limited to, risk of bleeding risk of infection, risk of need for further surgery, risk of decreased, loss of motion, muscle function, malunion nonunion, hardware failure, nerve damage, paralysis, heart attack, and . OPERATIVE SUMMARY After discussing all the risks, patient alternatives and benefits at length, the patient elected to proceed with surgical intervention, signed informed consent, and presented for their procedure. The patient was seen and examined in the preoperative holding area and the surgical site was marked. The patient was given antibiotics and brought to the operating room. The patient was positioned on the operating room table in a supine position being careful to pad any bony prominences and pressure points. The patient was sedated and intubated by anesthesia in standard fashion. Once the airway and C- spine were stabilized the patient's arms were padded and tucked at her side, with her shoulders gently taped. The head was placed in a donut pad with the neck in good neutral alignment and position. We were careful to maintain the patient's cervical spine and good neutral alignment and position throughout. The patient was prepped and draped in a normal standard fashion. An appropriate timeout and keystone protocol performed. We were able to proceed with the surgery. The local wound area was infiltrated with local anesthetic. An incision was made transversely approximately 2-1/2 cm over the appropriate levels on the right side at approximately C4-5. Dissection was taken down subcutaneously to the level of the platysma which was split in line with its fibers. Dissection was taken with a carotid approach, with the trachea and esophagus medial and the carotid sheath laterally. We dissected down to the anterior surface of the vertebral bodies. I was able to identify the cephalad part of the prior plate at C5 and was checked and found to have good stability. I was able to expose the levels above that at C3-4 and C4-5. Intraoperative x- ray was taken which showed a marker at the appropriate level at C4-5. With the appropriate level positively confirmed, we were able to proceed with discectomy at the appropriate levels. I started C4-5 and then moved to C3-4 appropriately all of the operative levels were exposed appropriately. The patient had all their twitches back, and there was no evidence of recurrent laryngeal issue. The wound was copiously irrigated and suctioned dry as had been done periodically throughout the case. At the appropriate level/levels similarly at first at C4-5 and then at C3-4 I was able to remove and stripped anterior cervical osteophytes. The bone that was harvested was able to be saved for local antis bone graft later in the case., I established an annulotomy with an 11 blade scalpel. A discectomy was performed with a combination of pituitary rongeurs, curettes, a high-speed bur, and Kerrison rongeurs. The posterior longitudinal ligament was taken down as were any posterior osteophytes. There had been significant posterior osteophytes and disc herniation causing impingement which was removed. This gave good central and bilateral foraminal decompression. There is no evidence of any dural tear or leak. The endplates were prepared with a high-speed bur. With the endplates in good parallel position, I was able to size for the appropriate size interbody graft. The wound was irrigated and suctioned dry. the graft was sized prepared and filled with local autogenous bone graft. The position was checked with the trial on C- arm guidance and then with the graft on the appropriate insertion device and with bone graft inside, it was malleted into position. The position was confirmed on C arm guidance it had good alignment and position with the anterior surface flush with the anterior surface of the vertebral bodies. I was able to deploy the locking devices and the construct was checked and found have good stability. This was done similarly the appropriate levels first at C4-5 and then at C3-4. We did not have to remove any of the old hardware at C5-6 or 7 The construct was checked and found to be stable. Intraoperative x-ray was taken which showed good alignment and position of the implants at the appropriate levels. There was no evidence of any dural tear or leak. Good hemostasis was maintained. The wound was copiously irrigated and suctioned dry as had been done periodically throughout the case. The platysma was closed with absorbable suture. The subcutaneous tissue was closed. The subcuticular tissue was closed with absorbable suture. The wound was cleaned and dried and dressed appropriately. A soft cervical collar was placed appropriately. The patient was woken up by anesthesia, extubated, transferred back gently to their hospital bed and brought to the recovery room in good stable condition. The patient will be admitted to the hospital for appropriate postoperative care, medical management and monitoring. We will continue to follow them closely about the postoperative course.
[2025-01-17] MEDS ORDERED: BENZOCAINE/MENTHOL LOZENG 1 EACH LOZENGE MUCOUS MEM PRN (10:11)
[2025-01-17] MEDS ORDERED: HYDROmorphone 1 MG/ML 1 ML SYRINGE IVP PRN (10:11)
[2025-01-17] MEDS ORDERED: HYDROmorphone 0.5 MG/0.5 ML SYRINGE IVP PRN (10:11)
[2025-01-17] MEDS ORDERED: ONDANSETRON 4 MG/2 ML VIAL IVP PRN (10:12)
[2025-01-17] MEDS ORDERED: CYCLOBENZAPRINE 10 MG TAB PO PRN (10:12)
[2025-01-17] MEDS ORDERED: SODIUM CHLORIDE 0.9% 1,000 ML IV SCH (10:15)
[2025-01-17] MEDS: HYDROmorphone 0.5 MG/0.5 ML SYRINGE IVP PRN (10:26)
[2025-01-17 11:35] VITALS: RESP 17
[2025-01-17] MEDS: HYDROcodone/APAP 5-325MG 1 EACH TAB PO PRN (11:49)
[2025-01-17 11:54] VITALS: PULSE 72
[2025-01-17 12:13] VITALS: BP 126/95
[2025-01-18] MEDS ORDERED: SENNOSIDES-DOCUSATE SODIUM 1 EACH TAB PO SCH (09:00)
== END 2025-01-17 13:05 | disposition home or self-care (01) ==
LOC: OR 05:31
PROVIDERS: ATTEND Orthopaedic Surgery Orthopaedic Surgery of the Spine
DX: M50.11 Cervical disc disorder with radiculopathy, high cervical region (principal); M48.02 Spinal stenosis, cervical region; M43.12 Spondylolisthesis, cervical region; M25.78 Osteophyte, vertebrae; J84.10 Pulmonary fibrosis, unspecified; M06.9 Rheumatoid arthritis, unspecified; J44.9 Chronic obstructive pulmonary disease, unspecified; M62.521 Muscle wasting and atrophy, not elsewhere classified, right upper arm; M62.511 Muscle wasting and atrophy, not elsewhere classified, right shoulder; F17.200 Nicotine dependence, unspecified, uncomplicated; Z79.52 Long term (current) use of systemic steroids; Z98.1 Arthrodesis status
CPT/HCPCS: 72040; 22551; 22552; 22853 ×2; 20936; C1713; J2250; J0330; J1100; J2710; J1720; J0690 ×2; J2405; J2003; J3010; J2704; J1171; J2371; J0665; J1596